=== PATIENT | male | born 1950 | race Caucasian/White ===

== ENCOUNTER 2020-09-23 08:23 | Inpatient (IN) ==
[2020-09-18 16:58] LABS: Basophils # 0.1 10*3/uL (0.0-0.2); Basophils % 0.8 % (0.0-0.8); Eosinophils # 0.1 10*3/uL (0.0-0.87); Hematocrit 40.9 VOL% (42.0-52.0); Hemoglobin 12.6 GM/DL (14.0-18.0); Immature Granulocytes % 0.3 %; Immature Granulocytes Absolute 0.02 #; Lymphocytes # 1.5 10*3/uL (1.4-4.0); Lymphocytes % 19.1 % (21.2-54.2); Mean Corpuscular HGB Conc 30.8 GM/DL (32-36); Mean Platelet Volume 10.1 FL (9.6-12.0); Monocytes % 13.6 % (1.7-12.7); Neutrophils % 65.2 % (38.7-73.9); Platelet Count 428 T/CUMM (130-400); Red Blood Count 4.87 MC/CUMM (3.8-5.5); Red Cell Distribution Width 13.8 % (9.3-17.3); White Blood Count 7.6 T/CUMM (4-12)
[2020-09-18 17:20] LABS: Albumin 3.9 G/DL (3.4-5.0); Bilirubin,Total 0.4 MG/DL (0.2-1.0); Osmolality,Calculated 276.5 MOS/KG (273-304); Potassium 3.6 MMOL/L (3.5-5.1); Total Protein 7.6 G/DL (6.4-8.2)
[~2020-09-23 08:23] MED LIST: ALVIMOPAN 12 MG CAPSULE PO ONE; cefOXitin 1,000 MG in SODIUM CHLORIDE 0.9% 100 ML IV ONE
[2020-09-23] MEDS ORDERED: FAMOTIDINE 20 MG TABLET PO ONE (10:23)
[2020-09-23] MEDS ORDERED: ACETAMINOPHEN 500 MG TABLET PO ONE (10:23)
[2020-09-23] MEDS ORDERED: DIAZEPAM 5 MG TABLET PO ONE (10:23)
[2020-09-23] MEDS ORDERED: DEXAMETHASONE 4 MG/1 ML VIAL ONE (11:22)
[2020-09-23] MEDS ORDERED: DEXMEDETOMIDINE 200 MCG/2 ML VIAL ONE (11:22)
[2020-09-23] MEDS ORDERED: ROPIVACAINE 0.5% 30 ML VIAL ONE (11:22)
[2020-09-23] MEDS ORDERED: LIDOCAINE 1% 5 ML VIAL ONE (11:22)
[2020-09-23] MEDS ORDERED: LACTATED RINGERS 1,000 ML IV SCH (11:30)
[2020-09-23] MEDS ORDERED: BUPIVACAINE MPF 0.25% 30 ML VIAL ONE (11:46)
[2020-09-23] MEDS ORDERED: TISSUE ADHESIVE 1 EACH APPLICATOR TOP ONE (11:47)
[2020-09-23] MEDS ORDERED: LIDOCAINE 1%/EPI INJ 20 ML VIAL ONE (11:47)
[2020-09-23] MEDS ORDERED: ETOMIDATE 40 MG/20 ML VIAL IV ONE (12:17)
[2020-09-23] MEDS ORDERED: ROCURONIUM 50 MG/5 ML VIAL IV ONE (12:17)
[2020-09-23] MEDS ORDERED: LIDOCAINE 2% 5 ML VIAL ONE (12:17)
[2020-09-23] MEDS ORDERED: PHENYLEPHRINE 10 MG/1 ML VIAL IV ONE (12:17)
[2020-09-23] MEDS ORDERED: propofoL 200 MG/20 ML VIAL IV ONE (12:17)
[2020-09-23] MEDS ORDERED: fentaNYL 100 MCG/2 ML VIAL ONE ×2 (12:32→13:45)
[2020-09-23] MEDS ORDERED: ePHEDrine 50 MG/ML VIAL ONE (12:50)
[2020-09-23] MEDS ORDERED: SEVOFLURANE 1 UNIT/15 MINUTE INH ONE ×9 (13:46→16:37)
[2020-09-23] MEDS ORDERED: METOPROLOL TARTRATE 5 MG/5 ML VIAL IV ONE (13:56)
[2020-09-23] MEDS ORDERED: INDOCYANINE GREEN 25 MG VIAL IV ONE (14:58)
[2020-09-23] MEDS ORDERED: LACTATED RINGERS 1,000 ML IV ONE (14:59)
[2020-09-23] MEDS ORDERED: GLYCOPYRROLATE 0.4 MG/2 ML VIAL ONE (15:52)
[2020-09-23] MEDS ORDERED: NEOSTIGMINE 10 MG/10 ML VIAL ONE (15:52)
[2020-09-23] MEDS ORDERED: ONDANSETRON 4 MG/2 ML VIAL IV PRN (15:58)
[2020-09-23] MEDS ORDERED: HYDROmorphone 2 MG/1 ML VIAL ONE (16:54)
[2020-09-23] MEDS: ONDANSETRON 4 MG/2 ML VIAL IV PRN (16:56)
[2020-09-23] MEDS: HYDROmorphone 2 MG/1 ML VIAL IV PRN ×2 (16:58→17:03)
[2020-09-23 18:11] LABS: Hematocrit 39.1 VOL% (42.0-52.0); Hemoglobin 11.8 GM/DL (14.0-18.0)
[2020-09-23] MEDS ORDERED: SIMETHICONE CHEW 125 MG TABLET PO PRN (19:01)
[2020-09-23] MEDS: TAMSULOSIN 0.4 MG CAPSULE PO SCH (21:39)
[2020-09-23] MEDS: MORPHINE 4 MG/1 ML VIAL IV PRN (21:44)
[2020-09-23] MEDS: DUTASTERIDE 0.5 MG CAPSULE PO SCH (22:46)
[2020-09-24 01:20] LABS: Hematocrit 37.6 VOL% (42.0-52.0); Hemoglobin 11.9 GM/DL (14.0-18.0)
[2020-09-24] MEDS: MORPHINE 4 MG/1 ML VIAL IV PRN ×3 (03:20→15:22)
[2020-09-24 05:18] LABS: Basophils % 0.2 % (0.0-0.8); Hematocrit 34.5 VOL% (42.0-52.0); Immature Granulocytes % 0.5 %; Immature Granulocytes Absolute 0.06 #; Lymphocytes # 0.9 10*3/uL (1.4-4.0); Lymphocytes % 7.3 % (21.2-54.2); Mean Corpuscular HGB Conc 31.9 GM/DL (32-36); Mean Corpuscular Volume 81.8 FL (87-102); Mean Platelet Volume 10.4 FL (9.6-12.0); Monocytes % 11.3 % (1.7-12.7); Neutrophils % 80.7 % (38.7-73.9); Platelet Count 326 T/CUMM (130-400); Red Blood Count 4.22 MC/CUMM (3.8-5.5); Red Cell Distribution Width 13.8 % (9.3-17.3); White Blood Count 11.7 T/CUMM (4-12)
[2020-09-24 05:35] LABS: Calcium 8.5 MG/DL (8.5-10.1); Potassium 3.5 MMOL/L (3.5-5.1)
[2020-09-24 08:23] LABS: Hematocrit 35.5 VOL% (42.0-52.0); Hemoglobin 11.2 GM/DL (14.0-18.0)
[2020-09-24] MEDS ORDERED: ACETAMINOPHEN 325 MG TABLET PO PRN (08:29)
[2020-09-24] MEDS: ASPIRIN EC 81 MG TABLET PO SCH (09:05)
[2020-09-24] MEDS: hydroCHLOROthiazide 25 MG TABLET PO SCH (09:05)
[2020-09-24] MEDS: ENALAPRIL 10 MG TABLET PO SCH (09:07)
[2020-09-24] MEDS: ENOXAPARIN 40 MG/0.4 ML SYRINGE SUBCUT SCH (09:07)
[2020-09-24] MEDS: LIDOCAINE 5% PATCH TRANSDERM SCH (12:00)
[2020-09-24] MEDS: LACTATED RINGERS 1,000 ML IV SCH (18:29)
[2020-09-24] MEDS: TAMSULOSIN 0.4 MG CAPSULE PO SCH (21:12)
[2020-09-24] MEDS: DUTASTERIDE 0.5 MG CAPSULE PO SCH (22:24)
[2020-09-25] MEDS: MORPHINE 4 MG/1 ML VIAL IV PRN (03:35)
[2020-09-25] MEDS: LACTATED RINGERS 1,000 ML IV SCH ×3 (05:27→17:19)
[2020-09-25 05:56] LABS: Basophils % 0.3 % (0.0-0.8); Eosinophils # 0.1 10*3/uL (0.0-0.87); Eosinophils % 1.1 % (0.00-10.9); Hematocrit 33.6 VOL% (42.0-52.0); Hemoglobin 10.4 GM/DL (14.0-18.0); Immature Granulocytes % 0.7 %; Immature Granulocytes Absolute 0.06 #; Lymphocytes % 10.5 % (21.2-54.2); Mean Platelet Volume 10.8 FL (9.6-12.0); Monocytes % 10.2 % (1.7-12.7); Neutrophils % 77.2 % (38.7-73.9); Platelet Count 298 T/CUMM (130-400); Red Cell Distribution Width 14.2 % (9.3-17.3); White Blood Count 9.1 T/CUMM (4-12)
[2020-09-25] MEDS: LIDOCAINE 5% PATCH TRANSDERM SCH (10:58)
[2020-09-25] MEDS: ENOXAPARIN 40 MG/0.4 ML SYRINGE SUBCUT SCH (10:58)
[2020-09-25] MEDS: hydroCHLOROthiazide 25 MG TABLET PO SCH (10:58)
[2020-09-25] MEDS: ASPIRIN EC 81 MG TABLET PO SCH (10:58)
[2020-09-25] MEDS: ENALAPRIL 10 MG TABLET PO SCH (10:59)
[2020-09-25] MEDS: TAMSULOSIN 0.4 MG CAPSULE PO SCH (18:09)
[2020-09-26] MEDS: DUTASTERIDE 0.5 MG CAPSULE PO SCH (00:53)
[2020-09-26] MEDS: hydroCHLOROthiazide 25 MG TABLET PO SCH (08:30)
[2020-09-26] MEDS: ASPIRIN EC 81 MG TABLET PO SCH (08:30)
[2020-09-26] MEDS: LIDOCAINE 5% PATCH TRANSDERM SCH (08:31)
[2020-09-26] MEDS: ENOXAPARIN 40 MG/0.4 ML SYRINGE SUBCUT SCH (08:31)
[2020-09-26] MEDS: ENALAPRIL 10 MG TABLET PO SCH (08:32)
[2020-09-26 11:04] VITALS: BP 135/63
== END 2020-09-26 13:12 | disposition home or self-care (01) | DRG 330 ==
LOC: N.OR 08:23 → N.SDSINP 08:27 → N.3E 15:58
PROVIDERS: ADMIT Surgery; ATTEND Surgery